=== PATIENT | male | born 1980 | race Caucasian/White ===

== ENCOUNTER 2018-09-26 12:36 | Emergency (ER) | payer OTHER ==
[2018-09-26 12:42] VITALS: BP 103/65; PULSE 70; TEMP 97.6; BMI 27.6
[2018-09-26] MEDS ORDERED: SODIUM CHLORIDE 1,000 ML IV STA (13:52)
[2018-09-26] MEDS ORDERED: ACETAMINOPHEN 1000 MG/100 ML VIAL (NON FORMULARY) IVPB ONE (13:52)
--- NOTE | 2018-09-26 14:02 | PDOC ---
History of Present Illness <Kev Chicas - Last Filed: 09/26/18 19:21> - History of Present Illness Initial Comments: 09/26/18 14:26 The patient is a 38 year old male, with no significant past medical history, who presents to the emergency department with LLQ abdominal pain radiating to the L flank, for 1 week. The patient reports the pain comes and goes but worsened yesterday, bringing him to the ED today. The patient notes he had trouble sleeping secondary to the pain. The patient reports 1x episode of vomiting, nonbloody this morning. He denies any recent fevers, chills, headache or dizziness. He denies any recent nausea, diarrhea or constipation. He denies any recent chest pain. He denies any recent dysuria, frequency, urgency or hematuria. Allergies: NKA Social History: Previous Occasional Smoker (Quit 1 years ago), social alcohol use. <Annika Dominiquean - Last Filed: 09/27/18 09:46> - General Chief Complaint: Pain, Acute Stated Complaint: ABD PAIN Time Seen by Provider: 09/26/18 13:28 Past History <Kev Chicas - Last Filed: 09/26/18 19:21> - Past Medical History COPD: No - Suicide/Smoking/Psychosocial Hx Smoking Status: No Smoking History: Never smoked Have you smoked in the past 12 months: No Number of Cigarettes Smoked Daily: 2 Information on smoking cessation initiated: No 'Breaking Loose' booklet given: 09/10/15 Hx Alcohol Use: No Drug/Substance Use Hx: No Substance Use Type: None <Demar Dominique - Last Filed: 09/27/18 09:46> - Past Medical History Allergies/Adverse Reactions: Allergies Allergy/AdvReac Type Severity Reaction Status Date / Time No Known Allergies Allergy Verified 09/26/18 12:41 Home Medications: Ambulatory Orders RX: No Home Medications 0 dose .ROUTE UTDICT 05/30/12 Review of Systems - Review of Systems Comments:: 09/26/18 14:27 "GENERAL/CONSTITUTIONAL: No fever or chills. No weakness. HEAD, EYES, EARS, NOSE AND THROAT: No change in vision. No ear pain or discharge. No sore throat. CARDIOVASCULAR: No chest pain, no shortness of breath, no loss of consciousness RESPIRATORY: No cough, wheezing, or hemoptysis. GASTROINTESTINAL: + L flank and LLQ pain, + vomiting, No diarrhea or constipation. GENITOURINARY: No dysuria, frequency, or change in urination. MUSCULOSKELETAL: No joint or muscle swelling or pain. No neck or back pain. SKIN: No rash NEUROLOGIC: No vertigo, no change in strength/sensation. ENDOCRINE: No increased thirst. No abnormal weight change. HEMATOLOGIC/LYMPHATIC: No anemia, easy bleeding, or history of blood clots. ALLERGIC/IMMUNOLOGIC: No hives or skin allergy. <CatinaDemar - Last Filed: 09/27/18 09:46> *Physical Exam - Vital Signs Last Vital Signs Temp Pulse Resp BP Pulse Ox 97.6 F 70 16 103/65 100 09/26/18 12:39 09/26/18 12:39 09/26/18 12:39 09/26/18 12:39 09/26/18 12:39 <Kev Chicas - Last Filed: 09/26/18 19:21> - Vital Signs Last Vital Signs Temp Pulse Resp BP Pulse Ox 97.6 F 70 16 103/65 100 09/26/18 12:39 09/26/18 12:39 09/26/18 12:39 09/26/18 12:39 09/26/18 12:39 - Physical Exam Comments: 09/26/18 14:27 GENERAL: Awake, alert, and fully oriented, in no acute distress. HEAD: No signs of trauma EYES: PERRLA, EOMI, sclera anicteric, conjunctiva clear ENT: Auricles normal inspection, hearing grossly normal, nares patent, oropharynx clear without exudates. Moist mucosa NECK: Nontender, no stepoffs, Normal ROM, supple, no lymphadenopathy, JVD, or masses LUNGS: Breath sounds equal, clear to auscultation bilaterally. No wheezes, and no crackles HEART: Regular rate and rhythm, normal S1 and S2, no murmurs, rubs or gallops ABDOMEN: + LUQ and LLQ TTP, + L CVAT, normoactive bowel sounds. No guarding, no rebound. No masses EXTREMITIES: Normal range of motion, no edema. No clubbing or cyanosis. No cords, erythema, or tenderness NEUROLOGICAL: Cranial nerves II through XII intact. 5/5 strength and sensation in all extremities, Normal speech, normal gait, normal cerebellar function SKIN: Warm, Dry, normal turgor, no rashes or lesions noted. <Demar Dominique - Last Filed: 09/27/18 09:46> Moderate Sedation - Procedure Monitoring Vital Signs: Procedure Monitoring Vital Signs Temperature 97.6 F 09/26/18 12:39 Pulse Rate 70 09/26/18 12:39 Respiratory Rate 16 09/26/18 12:39 Blood Pressure 103/65 09/26/18 12:39 O2 Sat by Pulse Oximetry (%) 100 09/26/18 12:39 <Kev Chicas - Last Filed: 09/26/18 19:21> - Procedure Monitoring Vital Signs: Procedure Monitoring Vital Signs Temperature 97.6 F 09/26/18 12:39 Pulse Rate 70 09/26/18 12:39 Respiratory Rate 16 09/26/18 12:39 Blood Pressure 103/65 09/26/18 12:39 O2 Sat by Pulse Oximetry (%) 100 09/26/18 12:39 <Demar Dominique - Last Filed: 09/27/18 09:46> ED Treatment Course - LABORATORY CBC & Chemistry Diagram: 09/26/18 15:00 09/26/18 15:00 - ADDITIONAL ORDERS Additional order review: Laboratory Results 09/26/18 09/26/18 15:04 15:00 Sodium 138 Potassium 3.5 Chloride 103 Carbon Dioxide 30 Anion Gap 5 L BUN 13 Creatinine 0.9 Creat Clearance w eGFR > 60 Random Glucose 99 Calcium 7.8 L Total Bilirubin 0.2 AST 17 ALT 28 Alkaline Phosphatase 110 Total Protein 7.0 Albumin 3.6 Lipase 80 Urine Color Yellow Urine Appearance Clear Urine pH 5.0 Ur Specific Cedar 1.026 Urine Protein Negative Urine Glucose (UA) Negative Urine Ketones Negative Urine Blood Negative Urine Nitrite Negative Urine Bilirubin Negative Urine Urobilinogen Negative Ur Leukocyte Esterase Negative 09/26/18 15:00 RBC 4.27 MCV 90.1 MCHC 35.2 RDW 13.2 MPV 8.9 Neutrophils % 47.2 Lymphocytes % 37.6 Monocytes % 10.1 Eosinophils % 4.3 Basophils % 0.8 - Medications Given in the ED: ED Medications Discontinued Medications Generic Name Dose Route Start Last Admin Trade Name Freq PRN Reason Stop Dose Admin Acetaminophen 1,000 mg 09/26/18 13:52 09/26/18 15:20 Ofirmev Injection - IVPB 09/26/18 13:53 1,000 mg ONCE ONE Administration Sodium Chloride 1,000 mls @ 1,000 mls/hr 09/26/18 13:52 09/26/18 15:19 Normal Saline - IV 09/26/18 14:51 1,000 mls/hr ASDIR STA Administration Famotidine/Sodium Chloride 20 mg in 50 mls @ 100 mls/hr 09/26/18 16:09 17:09 Pepcid 20 Mg Premixed Ivpb - IVPB 09/26/18 16:38 100 mls/hr ONCE ONE Administration <Kev hCicas - Last Filed: 09/26/18 19:21> - LABORATORY CBC & Chemistry Diagram: 09/26/18 15:00 09/26/18 15:00 - RADIOLOGY Radiology Studies Ordered: Category Date Time Status ABDOMEN & PELVIS CT WITH CONTR [CT] Stat CT Scan 09/26/18 13:53 Ordered <Demar Dominique - Last Filed: 09/27/18 09:46> Medical Decision Making - Medical Decision Making 09/26/18 19:21 Repeat examination no abdominal tenderness to palpation normal testicular exam Patient still with some intermittent positional pain possibly muscular skeletal are given no fever no white count no acute CT in several weeks of symptoms low suspicion for acute surgical process I provided the patient with surgery follow-up very strict abdominal pain return instructions discussed with patient. Findings, need for follow-up and strict return instructions discussed with patient. <Kev Chicas - Last Filed: 09/26/18 19:21> - Medical Decision Making 09/26/18 14:28 38 M with L sided abdominal pain and L CVAT. Suspect nephrolithiasis. Will also evaluate for colitis/diverticulitis. - Labs, UA - CTAP - IVF, Tylenol 09/26/18 16:10 Labs wnl UA negative Pending CT Pt signed out to oncoming attending pending imaging and re-evaluation <Demar Dominique - Last Filed: 09/27/18 09:46> *DC/Admit/Observation/Transfer - Discharge Dispostion Decision to Admit order: No <Kev Chicas - Last Filed: 09/26/18 19:21> - Attestations Physician Attestion: 09/27/18 09:46 I, Dr. Demar Dominique MD, attest that this document has been prepared under my direction and personally reviewed by me in its entirety. I further attest, that it accurately reflects all work, treatment, procedures and medical decision -making performed by me. <Demar Dominique - Last Filed: 09/27/18 09:46> Diagnosis at time of Disposition: Abdominal pain Qualifiers: Abdominal location: left lower quadrant Qualified Code(s): R10.32 - Left lower quadrant pain - Discharge Dispostion Disposition: HOME Condition at time of disposition: Stable - Referrals Referrals: [facility] [place] [Provider Group] Demar Nguyen MD [Staff Physician] - - Patient Instructions Printed Discharge Instructions: DI for Acute Abdomen Additional Instructions: Drink plenty of fluids. Take [id number] Tylenol as directed on package as needed for pain. Follow-up with Dr. Nguyen this week for further management. Return to the emergency department for any fever severe worsening pain or for any concerns. - Post Discharge Activity Forms/Work/School Notes: Back to Work
[2018-09-26] MEDS ORDERED: ACETAMINOPHEN INJECTION 100 ML IVPB ONE (15:05)
[2018-09-26 15:31] LABS: BASO % 0.8 % (0-2.0); EOS % 4.3 % (0-4.5); HEMATOCRIT 38.4 % (35.4-49); HEMOGLOBIN 13.5 GM/dL (11.7-16.9); LYMPH % 37.6 % (8-40); MCH 31.7 pg (25.7-33.7); MCHC 35.2 g/dl (32.0-35.9); MEAN CELL VOLUME 90.1 fl (80-96); MEAN PLT VOLUME 8.9 fl (7.5-11.1); MONO % 10.1 % (3.8-10.2); NEUT % 47.2 % (42.8-82.8); PLATELET COUNT 219 K/MM3 (134-434); RBC 4.27 M/mm3 (4.00-5.60); RDW 13.2 % (11.9-15.9); WHITE BLOOD COUNT 6.6 K/mm3 (4.0-10.0)
[2018-09-26 15:39] LABS: URINE APPEARANCE CLEAR; URINE BILIRUBIN NEGATIVE (<2.0 mg/dL); URINE COLOR YELLOW; URINE GLUCOSE (UA) NEGATIVE (NEGATIVE); URINE KETONE NEGATIVE (NEGATIVE); URINE LEUK ESTERASE NEGATIVE (NEGATIVE); URINE NITRITE NEGATIVE (NEGATIVE); URINE PROTEIN NEGATIVE (NEGATIVE); URINE UROBILINOGEN NEGATIVE mg/dL (0.2-1.0)
[2018-09-26 16:07] LABS: ALBUMIN 3.6 g/dl (3.4-5.0); ALK PHOS 110 U/L (45-117); ANION GAP 5 MMOL/L (8-16); BILIRUBIN,TOTAL 0.2 mg/dL (0.2-1); BLOOD UREA NITROGEN 13 mg/dL (7-18); CALCIUM 7.8 mg/dL (8.5-10.1); CHLORIDE 103 mmol/L (98-107); CO2 30 mmol/L (21-32); CREATININE 0.9 mg/dL (0.55-1.3); GLUCOSE,RANDOM 99 mg/dL (74-106); LIPASE 80 U/L (73-393); POTASSIUM 3.5 mmol/L (3.5-5.1); SGOT/AST 17 U/L (15-37); SGPT/ALT 28 U/L (13-61); SODIUM 138 mmol/L (136-145)
[2018-09-26] MEDS ORDERED: FAMOTIDINE 20 MG/50 ML IVPB 20 MG/50 ML MG IVPB ONE ×2 (16:09→16:17)
== END 2018-09-26 19:56 | disposition home or self-care (01) ==
LOC: JER 12:36
DX: R10.32 Left lower quadrant pain (principal)
CPT/HCPCS: 36415; 74177-TC; 80053; 81003; 83690; 85025; 99282-25; J0131; J7030

== ENCOUNTER 2021-04-06 04:47 | Emergency (ER) | payer SELFPAY ==
[2021-04-06 05:34] VITALS: BMI 27.4
[2021-04-06] MEDS ORDERED: ACETAMINOPHEN 1000 MG/100 ML VIAL (NON FORMULARY) IVPB ONE (05:52)
[2021-04-06] MEDS ORDERED: ONDANSETRON 4 MG/2 ML VIAL IVPUSH ONE (05:52)
[2021-04-06] MEDS ORDERED: SODIUM CHLORIDE 0.9% 500 ML INFUS.BAG IV ONE (05:52)
[2021-04-06] MEDS ORDERED: ONDANSETRON 4 MG/2 ML VIAL ONE (06:00)
[2021-04-06] MEDS ORDERED: ACETAMINOPHEN INJECTION 100 ML IVPB ONE (06:00)
[2021-04-06 07:09] LABS: BASO % 0.4 % (0-2.0); HEMATOCRIT 40.8 % (35.4-49); HEMOGLOBIN 14.2 GM/dL (11.7-16.9); MCH 30.8 pg (25.7-33.7); MCHC 34.7 g/dl (32.0-35.9); MEAN CELL VOLUME 88.9 fl (80-96); MEAN PLT VOLUME 8.6 fl (7.5-11.1); MONO % 3.4 % (3.8-10.2); NEUT % 88.2 % (42.8-82.8); PLATELET COUNT 235 10^3/uL (134-434); RBC 4.59 M/mm3 (4.00-5.60); WHITE BLOOD COUNT 14.8 K/mm3 (4.0-10.0)
[2021-04-06 07:18] LABS: INR 1.03 (0.83-1.09); PROTHROMBIN TIME (PATIENT) 12.4 SEC (9.7-13.0)
[2021-04-06 07:24] LABS: CHLORIDE 104 mmol/L (98-107); SODIUM 140 mmol/L (136-145)
[2021-04-06 07:26] LABS: CALCIUM 9.3 mg/dL (8.5-10.1); GLUCOSE,RANDOM 134 mg/dL (74-106)
[2021-04-06 07:27] LABS: ALBUMIN 4.8 g/dl (3.4-5.0); ANION GAP 13 MMOL/L (8-16); BLOOD UREA NITROGEN 20.1 mg/dL (7-18); CO2 23 mmol/L (21-32); LIPASE 38 U/L (73-393); MAGNESIUM 2.1 mg/dL (1.8-2.4)
[2021-04-06 07:28] LABS: CREATININE 1.3 mg/dL (0.55-1.3)
[2021-04-06 07:30] LABS: BILIRUBIN,TOTAL 0.5 mg/dL (0.2-1); SGOT/AST 21 U/L (15-37); SGPT/ALT 31 U/L (13-61); TOT PROT 8.7 g/dl (6.4-8.2)
[2021-04-06 07:32] LABS: ALK PHOS 101 U/L (45-117)
[2021-04-06] MEDS ORDERED: SODIUM CHLORIDE 1,000 ML IV STA ×2 (08:28→08:29)
[2021-04-06 12:54] VITALS: TEMP 98.6
[2021-04-06 14:40] LABS: LACTIC ACID 2.1 mmol/L (0.4-2.0)
[2021-04-06 15:23] VITALS: BP 125/60; PULSE 72
== END 2021-04-06 15:00 | disposition home or self-care (01) ==
LOC: JER 04:47
PROC: 3E033NZ Introduction of Analgesics, Hypnotics, Sedatives into Peripheral Vein, Percutaneous Approach (ICD-10-PCS; principal; 2021-04-06)
PROC: 3E033GC Introduction of Other Therapeutic Substance into Peripheral Vein, Percutaneous Approach (ICD-10-PCS; 2021-04-06)
PROC: 3E0337Z Introduction of Electrolytic and Water Balance Substance into Peripheral Vein, Percutaneous Approach (ICD-10-PCS; 2021-04-06)
DX: R10.9 Unspecified abdominal pain (principal); R11.10 Vomiting, unspecified; R19.7 Diarrhea, unspecified
CPT/HCPCS: 36415; 71045-TC-FY; 74177-TC; 80053; 82550; 82553; 83605; 83690; 83735; 84484; 85025; 85610; 93005; 93010; 99285-25; C9803; J0131; Q9967; U0003; U0005